=== PATIENT | female | born 1975 | race African-American/Black ===

== ENCOUNTER 2019-06-29 12:57 | Inpatient (IN) | payer MEDICAID | END 2019-07-01 19:00 | disposition home or self-care (01) | LOC: ER 12:57 → TELE-WESTW 20:29 → ER 20:29 → TELE 12:58 → TELE-WESTW 20:35 | DX: R10.9 Unspecified abdominal pain (principal); D50.0 Iron deficiency anemia secondary to blood loss (chronic); F32.9 Major depressive disorder, single episode, unspecified; F41.9 Anxiety disorder, unspecified; K92.1 Melena; N85.2 Hypertrophy of uterus; N92.0 Excessive and frequent menstruation with regular cycle; R10.13 Epigastric pain ==